=== PATIENT | male | born 2000 | race Caucasian/White ===

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

== ENCOUNTER 2022-04-29 22:38 | Emergency (ER) | payer MEDICAID, SELFPAY ==
[2022-04-29 22:39] VITALS: BP 129/77; PULSE 77; RESP 14; TEMP 36.4; O2SAT 99; BMI 19.8
--- NOTE | 2022-04-29 22:45 | EKG12_ITS ---
Test Reason : CP Blood Pressure : / mmHG Vent. Rate : 070 BPM Atrial Rate : 070 BPM P-R Int : 120 ms QRS Dur : 094 ms QT Int : 368 ms P-R-T Axes : 043 079 066 degrees QTc Int : 397 ms Normal sinus rhythm Incomplete right bundle branch block Confirmed by DESHAWN LAUREANO, WAYNE ([id number]), art editor NANCY ANDRADE ([id number]) on 04/30/2022 9:27:38 AM Referred By: KALLIE Confirmed By:WAYNE HESS MD
--- NOTE | 2022-04-29 23:07 | ED.VIS.CHEST ---
HPI History of Present Illness Chief Complaint: Chest Pain Informant: patient Onset/Context/Timing Onset: Today Timing: Continuous Quality: Positive for Sharp and Tightness Location: Substernal Current Severity: Mild Maximum Severity: Moderate Narrative Narrative: Patient present secondary to chest pain. Pain started a couple hours ago [place] He states if he takes a deep breath and holds his breath the pain will go away for a few seconds. It is otherwise been pretty constant. Yesterday he had some left shoulder pain that is resolved today. He is unsure if this is related. There is reportedly a family history of heart problems that start in the mid 20s. PFSH PFS Medical History no medical history no medical history Home Medications omeprazole 40 mg capsule,delayed release 40 mg PO DAILY 6 weeks #42 caps 04/30/22 [Rx Last Taken Unknown] Allergy/AdvReac Type Severity Reaction Status Date / Time No Known Allergies Allergy Verified 04/29/22 22:39 Surgical History no surgical history no surgical history Social History Smoking Status: Never smoker ROS ROS ED Constitutional Constitutional ED: Denies chills or fever(s) Eyes Eyes: Denies change in vision or discharge from eye(s) ENT ENT ED: Denies discharge from eye(s), rhinorrhea or sore throat Cardiovascular Cardiovascular: Reports chest pain; Denies palpitations Respiratory/Chest Respiratory/Chest: Reports dyspnea; Denies cough Gastrointestinal Gastrointestinal: Denies abdominal pain, diarrhea, nausea or vomiting Genitourinary Genitourinary ED: Denies dysuria Musculoskeletal Musculoskeletal: Denies back pain or extremity pain Integumentary Denies Abrasions or rash Neurologic Neurologic: Denies headache(s) or weakness Psychiatric Psychiatric: Denies anxiety or depression Allergic/Immunologic Allergic/Immunologic ED: Denies lip swelling or urticaria EXAM Physical Exam Const Vital Signs: 04/29/22 22:39 04/29/22 23:21 04/30/22 01:11 Temperature 97.6 F L Temperature Source Temporal Pulse Rate 77 75 65 Respiratory Rate 14 15 18 Blood Pressure 129/77 H 127/58 H Blood Pressure Mean 94 81 Pulse Ox 99 100 95 Oxygen Delivery Method Room Air Room Air Room Air Positive well nourished and well developed General Appearance ED: well developed HEENT Reports normocephalic and head/scalp atraumatic Eyes PERRL and EOMs intact bilaterally Neck supple Chest Wall inspection of chest normal and palpation of chest normal Resp normal respiratory effort and clear to auscultation bilaterally Cardio regular rate and regular rhythm GI normal to inspection, nondistended, normoactive bowel sounds Palpation: soft Back/Spine no CVA tenderness Extremity normal to inspection Neuro oriented x3 and no sensory deficits noted Sensorium / Orientation: alert Motor Exam: strength 5/5 throughout Psych mental status grossly normal Skin no rashes or lesions noted Heart Score History: Slightly/Non-Suspicious ECG: Normal Age: </= 45 years Risk Factors: No Risk Factors Troponin: </= Normal Limit Score: 0 MDM MDM MDM Narrative Medical decision making narrative: EKG, chest x-ray, lab work obtained. Lab Data Attestation: I reviewed the patient's lab results. Labs: Laboratory Results - last 24 hr 04/29/22 04/29/22 04/29/22 23:17 23:17 23:17 WBC 11.3 H RBC 4.74 Hgb 14.1 Hct 40.9 MCV 86.3 MCH 29.7 MCHC 34.5 RDW Std Deviation 38.2 RDW Coeff of Abhay 11.9 Plt Count 227 MPV 11.0 Immature Gran % (Auto) 0.900 Neut % (Auto) 82.5 H Lymph % (Auto) 10.4 L [place] % (Auto) 4.9 Eos % (Auto) 1.0 Baso % (Auto) 0.3 Absolute Neuts (auto) 9.3 H Absolute Lymphs (auto) 1.17 Nucleated RBC % 0 D-Dimer Quant (PE/DVT) 0.61 H* Sodium 141 Potassium 3.9 Chloride 105 Carbon Dioxide 28.0 Anion Gap 8 BUN 17 Creatinine 1.04 Estim Creat Clear Calc 112.18 Est GFR (MDRD) Af Amer 116 Est GFR (MDRD) Non-Af 96 BUN/Creatinine Ratio 16.3 Glucose 95 Calcium 9.2 Troponin I High Sens 49 04/30/22 01:40 WBC RBC Hgb Hct MCV MCH MCHC RDW Std Deviation RDW Coeff of Abhay Plt Count MPV Immature Gran % (Auto) Neut % (Auto) Lymph % (Auto) [place] % (Auto) Eos % (Auto) Baso % (Auto) Absolute Neuts (auto) Absolute Lymphs (auto) Nucleated RBC % D-Dimer Quant (PE/DVT) Sodium Potassium Chloride Carbon Dioxide Anion Gap BUN Creatinine Estim Creat Clear Calc Est GFR (MDRD) Af Amer Est GFR (MDRD) Non-Af BUN/Creatinine Ratio Glucose Calcium Troponin I High Sens 45 Radiography Chest X-Ray - ED: 1 View, Read by ED Physician, Normal, Heart and Mediastinum Diagnostic Testing: Clinical Impression(s) from Imaging Studies Chest X-Ray 04/29/22 23:19 IMPRESSION: Normal x-ray examination of the chest. Electronically Signed: Jarod Muir DO at 23:44 EDT , Chest CTA 04/30/22 23:39 IMPRESSION: No pulmonary embolism or evidence of acute cardiopulmonary process. Diffuse esophageal wall thickening, most prominent in the distal segment concerning for esophagitis. Correlate for history of caustic ingestion or gastroesophageal reflux. Fluoroscopic esophagram or endoscopy could be best further evaluate. Electronically Signed: Sagar Kenyon MD at 1:05 EDT , EKG Initial EKG: Attestation: I personally reviewed and interpreted this EKG as follows: Interpretation: Sinus Rhythm (Sinus at 70 with no acute ischemia.) Treatment and Re-Evaluation Narrative: CBC was a white 11.3 with 82% neutrophils. Hemoglobin is normal. Chemistry studies unremarkable. Initial troponin is 49. D-dimer slightly elevated at 0.61. Chest x-ray per my interpretation is unremarkable. Patient sent for CTA of the chest which reveals no PE or acute cardiopulmonary process. The distal esophagus is thickened. 2-hour delta troponin is obtained and returns at 45. Test results are discussed with patient as well as family at bedside. Mother states that the patient's brother does have a disorder of his esophagus. She will try to get him scheduled with the GI doctor at [facility]. I will also refer to local GI if they are not able to see that physician in [place]. Patient will be started on antacids. Discharge Plan Triage Chief Complaint: Chest Pain ED Provider: Angela Almeida Dx/Rx/DC Orders Clinical Impression: Atypical chest pain, Esophagitis Instructions: Esophagitis, ED Chest Pain, Noncardiac Prescriptions: New omeprazole 40 mg capsule,delayed release(DR/EC) 40 mg PO DAILY 42 Days Qty: 42 0RF Primary Care Provider: Pascual Robles Referrals: Antoine Cain DO [Med Staff - Active Staff] - As Needed Pascual Robles MD [Primary Care Provider] - Disposition Disposition: Home, Self Care
--- NOTE | 2022-04-29 23:19 | RAD_ITS ---
STUDY: X-RAY CHEST REASON FOR EXAM: Male, 21 years old. cp TECHNIQUE: Single AP portable view of the chest. COMPARISON: None. FINDINGS: The lungs are clear and expanded. There is no demonstrated pleural abnormality. Normal size heart. Normal mediastinum and juan. Normal visualized pulmonary arteries. Normal visualized aortic arch and descending thoracic aorta. Normal visualized thoracic spine. Normal visualized ribs, clavicles, and shoulders. There is no demonstrated abnormality of the visualized soft tissue structures of the upper abdomen. RAD/Chest 1 View (Portable) IMPRESSION: Normal x-ray examination of the chest. Electronically Signed: Jarod Muir DO at 23:44 EDT ,
[2022-04-29 23:21] VITALS: BP 127/58; PULSE 75; RESP 15; O2SAT 100
[2022-04-29 23:36] LABS: D-Dimer Quantitative (DVT/PE) 0.61 FEU/ug/m (0.27-0.49)
[2022-04-29 23:37] LABS: Absolute Lymphocyte Count 1.17 X10^3/uL (0.83-4.51); Absolute Neutrophil Count 9.3 X10^3/uL (2.0-7.7); Basophil# 0.03 X10^3/uL; Basophil% 0.3 % (0-1); Eosinophil# 0.11 X10^3/uL; Hematocrit 40.9 % (40-54); Hemoglobin 14.1 g/dL (13.0-16.5); Lymphocyte # 1.17 X10^3/ul (0.83-4.51); Lymphocyte % 10.4 % (19-41); Mean Corp Hgb Conc 34.5 g/dL (32-36); Mean Corpuscular Hgb 29.7 pg (27.0-32.0); Mean Corpuscular Volume 86.3 fL (80-94); Monocyte# 0.55 X10^3/uL; Monocyte% 4.9 % (0-10); NRBC Flagged by Analyzer 0 % (0-5); Neutrophil # 9.34 X10^3/uL (2.7-7.7); Neutrophil % 82.5 % (47-70); Platelet Count 227 K/mm3 (150-450); RBC Distribution Width CV 11.9 % (11.6-14.6); RBC Distribution Width SD 38.2 fl (35.1-43.9); Red Blood Count 4.74 M/mm3 (4.6-6.2); White Blood Count 11.3 K/mm3 (4.4-11.0)
[2022-04-29 23:41] LABS: Anion Gap 8 (5-15); BUN 17 mg/dL (7-18); BUN/Creat Ratio 16.3 RATIO (10-20); Calcium,Total 9.2 mg/dL (8.5-10.1); Chloride 105 mmol/L (98-107); Creatinine, Serum 1.04 mg/dL (0.70-1.30); EST Glomerular Filtration Rate 96 mL/min (>60); Est Glom Filt Rate - Afr Amer 116 mL/min (>60); Estimated Creatinine Clearance 112.18 ml/min; Glucose 95 mg/dL (74-106); Potassium 3.9 mmol/L (3.5-5.1); Sodium Level 141 mmol/L (136-145); Troponin-I HS 49 pg/mL (3.0-78.0)
[2022-04-30 01:11] VITALS: PULSE 65; RESP 18; O2SAT 95
[2022-04-30 02:00] LABS: Troponin-I HS 45 pg/mL (3.0-78.0)
[2022-04-30 02:12] VITALS: PULSE 60; RESP 19; O2SAT 95
[2022-04-30] MEDS: Pantoprazole Sodium 40 MG Tablet PO (02:15)
--- NOTE | 2022-04-30 23:39 | CT_ITS ---
STUDY: CTA CHEST REASON FOR EXAM: Male, 21 years old. cp, sob, elevated d-dimer RADIATION DOSAGE (If Supplied By Facility): CTDIvol = ( 12.63 ) mGy, DLP = ( 334.36 ) mGycm TECHNIQUE: The examination was performed with the intravenous administration of IV 75mL Isovue-370. Post-processing of the angiographic images was performed, with multiplanar reformation and 3D reconstruction. Individualized dose optimization techniques were used for this CT. COMPARISON: Chest radiograph April 29, 2022. FINDINGS: Normal enhancement of the bilateral pulmonary arteries. There is no demonstrated pulmonary embolism. No aortic dissection or aneurysmal dilatation. Normal heart and pericardium. No densely calcified coronary atherosclerosis. No mediastinal or hilar adenopathy. Diffuse circumferential esophageal wall thickening, most prominent in the lower segment. No pneumomediastinum. No gross paraesophageal adenopathy or fluid. Normal visualized trachea and bronchi. The lungs are well expanded. No airspace consolidation effusion or pneumothorax. Normal osseous structures. Normal visualized upper abdomen. CT/CTA Chest W/WO Contrast IMPRESSION: No pulmonary embolism or evidence of acute cardiopulmonary process. Diffuse esophageal wall thickening, most prominent in the distal segment concerning for esophagitis. Correlate for history of caustic ingestion or gastroesophageal reflux. Fluoroscopic esophagram or endoscopy could be best further evaluate. Electronically Signed: Sagar Kenyon MD at 1:05 EDT ,
== END 2022-04-30 02:19 | disposition home or self-care (01) ==
PROVIDERS: Emergency Provider Emergency Medicine; PCP Pediatrics; Visit Provider Emergency Medicine
DX: R07.89 Other chest pain (principal); K20.90 Esophagitis, unspecified without bleeding; Z83.79 Family history of other diseases of the digestive system; Z82.49 Family history of ischemic heart disease and other diseases of the circulatory system
CPT/HCPCS: 71045; 71275; 80048; 84484; 85025; 85379; 93005; 99284; Q9967; A4216